=== PATIENT | female | born 1985 | race African-American/Black ===

== ENCOUNTER 2021-04-08 10:21 | Emergency (ER) | payer OTHER ==
[~2021-04-08] VITALS: Ht 162.6 cm; Wt 81.7 kg
[2021-04-08] MEDS ORDERED: HYDROCODON-ACE1 EAC7 PO (11:56)
[2021-04-08 12:33] VITALS: BP 124/82
== END 2021-04-08 12:35 | disposition home or self-care (01) ==
LOC: ER 10:21
DX: D23.72 Other benign neoplasm of skin of left lower limb, including hip (principal); F17.210 Nicotine dependence, cigarettes, uncomplicated